=== PATIENT | female | born 1985 | race African-American/Black ===

== ENCOUNTER 2017-07-14 11:39 | Emergency (ER) | payer OTHER ==
[~2017-07-14] VITALS: Ht 162.6 cm; Wt 67.1 kg
[2017-07-14 11:50] VITALS: BP 128/60
--- NOTE | 2017-07-14 12:16 | PHYS DOC ---
Past Medical History Past Medical History: No Pertinent History Past Surgical History: , Other Additional Past Surgical Histo: elective AB Additional Information: quit when pt found out she was Alcohol Use: None Drug Use: None Adult General Chief Complaint Chief Complaint: ABDOMINAL PAIN IN HPI HPI Patient is a 31 year old female A1 who presents with complaints of bilateral side discomfort pressure. Patient had a little bit of spotting yesterday describes it as an not bright red but rather brownish/pinkish. Patient just had a normal period about a month ago. Patient denies any unusual vaginal discharge, dysuria, back pain, abdominal pain, changes in the skin, trauma. No vomiting, no diarrhea. Patient has appointment with [employer] on the . Patient states she's not overly worried she is wanted to get checked out. Review of Systems Review of Systems Constitutional: Denies fever or chills [] HENT: Denies headache Respiratory: Denies cough or shortness of breath [] Cardiovascular: No chest pain GI: Discomfort and bilateral thighs. No abdominal pain, no pelvic pain : Denies dysuria or hematuria. No vaginal discharge, no pelvic pain Musculoskeletal: Denies back pain or joint pain [] Integument: Denies rash or skin lesions [] Neurologic: Denies headache, focal weakness or sensory changes [] Endocrine: Denies polyuria or polydipsia [] Allergies Allergies Allergies Coded Allergies Type Severity Reaction Last Updated Verified Penicillins Allergy Intermediate 07/14/17 Yes Physical Exam Physical Exam Constitutional: Well developed, well nourished, no acute distress, non-toxic appearance. [] HENT: Normocephalic, atraumatic, bilateral external ears normal, oropharynx moist, no oral exudates, nose normal. [] Eyes: EOMI, conjunctiva normal, no discharge. [] Neck: Normal range of motion, trachea midline. [] Cardiovascular:Heart rate regular rhythm, no murmur, normal perfusion Lungs & Thorax: Bilateral breath sounds clear to auscultation, no tachypnea Abdomen: Bowel sounds normal, soft, no tenderness, no masses, no pulsatile masses. No guarding, no rebound Skin: Warm, dry, no erythema, no rash. [] Back: No tenderness, no CVA tenderness. [] Extremities: No tenderness, no cyanosis, no clubbing, ROM intact, no edema. [] Neurologic: Alert and oriented X 3, normal motor function, no focal deficits noted. [] Psychologic: Affect normal, judgement normal, mood normal. [] Current Patient Data Vital Signs Vital Signs Date Time Temp Pulse Resp B/P (MAP) Pulse Ox O2 Delivery O2 Flow Rate FiO2 07/14/17 11:50 98.2 99 16 128/60 (82) 100 Room Air 98.2 Lab Values Laboratory Tests Test 07/14/17 10:59 07/14/17 11:48 POC Urine HCG, Qualitative Hcg positive (Negative) Urine Collection Type Unknown Urine Color Yellow Urine Clarity Cloudy Urine pH 8.0 Urine Specific [place] 1.020 Urine Protein Negative mg/dL (NEG-TRACE) Urine Glucose (UA) Negative mg/dL (NEG) Urine Ketones (Stick) Negative mg/dL (NEG) Urine Blood Negative (NEG) Urine Nitrite Negative (NEG) Urine Bilirubin Negative (NEG) Urine Urobilinogen Dipstick 1.0 mg/dL (0.2 mg/dL) Urine Leukocyte Esterase Negative (NEG) Urine RBC 0 /HPF (0-2) Urine WBC 0 /HPF (0-4) Urine Squamous Epithelial Cells Mod /LPF Urine Amorphous Sediment Present /HPF Urine Bacteria 0 /HPF (0-FEW) Urine Mucus Slight /LPF EKG EKG [] Radiology/Procedures Radiology/Procedures [] Impressions: This is a well-looking, not ill-appearing female who presents with concerns for bilateral bilateral thigh discomfort. Patient was at work she does a lot of bending over and lifting he started expressing this discomfort, since she was closed the emergency room she's had commode and get checked out. Patient has been her usual state of health. Patient did not experience any ain in the abdomen or in the pelvis she also denies any back pain. Patient does not describe any urinary symptoms or vaginal discharge and at the time of the ED evaluation declines a pelvic exam. I expect the patient will be unable to make a full diagnosis and evaluation without it but the patient states that she feels fine and that have discomfort was mostly discomfort of the thighs. The patient's physical exam is unremarkable inaudibly she doesn't have any back pain or abdominal pain on palpation nor does she have any pelvic pain on palpation. Given the patient's appearance, her history and vital signs and physical exam a suspicion for an ectopic /significant abdominal process or infectious process is extremely low. Patient is aware of concerning signs and symptoms and is agreeable to return to the ED if her symptoms worsen or new concerning symptoms (which have been discussed with her) develop Course & Med Decision Making Course & Med Decision Making Pertinent Labs and Imaging studies reviewed. (See chart for details) have been discussed with the patient [id number] . Patient has remained in no distress during the whole ED stay. Vital signs still unremarkable. [] Dragon Disclaimer Dragon Disclaimer This electronic medical record was generated, in whole or in part, using a voice recognition dictation system. Departure Departure Impression: Primary Impression: Encounter for medical screening examination Additional Impressions: Muscular aches Disposition: HOME, SELF-CARE Condition: STABLE Referrals: NO PCP (PCP) you told us you have a pcp to follow up with, please f/u at your already scheduled appointment. Please return to the ED immediately if you experience abdominal, pelvic or back pain or start having vaginal bleeding or discharge. Patient Instructions: ABCs of , Muscle Cramps, [id number], Muscle Strain Problem Qualifiers Michael BRAUN MD Jul 14, 2017 12:16
[2017-07-14 12:32] LABS: BILIRUBIN,URINE NEGATIVE (NEG); GLUCOSE,URINE NEGATIVE (NEG); NITRITE,URINE NEGATIVE (NEG); PROTEIN,URINE NEGATIVE (NEG-TRACE)
[2017-07-14 12:40] LABS: BACTERIA,URINE 0 /HPF (0-FEW); RBC,URINE 0 /HPF (0-2); SQUAMOUS EPITHELIAL CELL,UR MOD /LPF; WBC,URINE 0 /HPF (0-4)
== END 2017-07-14 13:01 | disposition home or self-care (01) ==
LOC: ER 11:39
DX: Z34.90 Encounter for supervision of normal pregnancy, unspecified, unspecified trimester (principal); M79.652 Pain in left thigh; M79.651 Pain in right thigh; Z88.0 Allergy status to penicillin
CPT/HCPCS: 81001; 81025; 99283

== ENCOUNTER 2017-07-21 12:20 | Emergency (ER) | payer OTHER ==
[~2017-07-21] VITALS: Ht 162.6 cm; Wt 67.1 kg
[2017-07-21 12:44] VITALS: BP 114/63
[2017-07-21 12:50] LABS: BILIRUBIN,URINE NEGATIVE (NEG); GLUCOSE,URINE NEGATIVE (NEG); NITRITE,URINE NEGATIVE (NEG); PROTEIN,URINE NEGATIVE (NEG-TRACE)
[2017-07-21 13:12] LABS: BACTERIA,URINE 0 /HPF (0-FEW); RBC,URINE OCC /HPF (0-2); SQUAMOUS EPITHELIAL CELL,UR MOD /LPF; WBC,URINE 0 /HPF (0-4)
[2017-07-21 13:25] LABS: BASO % 0 % (0-3); EOS % 1 % (0-3); HEMATOCRIT 35.5 % (36.0-47.0); HEMOGLOBIN 11.8 g/dL (12.0-15.5); LYMPH # 1.4 x10^3/uL (1.0-4.8); LYMPH % 21 % (24-48); MEAN CORPUSCULAR HEMOGLOBIN 32 pg (25-35); MEAN CORPUSCULAR HGB CONC 33 g/dL (31-37); MEAN CORPUSCULAR VOLUME 97 fL (79-100); MONO % 9 % (0-9); NEUT % 69 % (31-73); PLATELET COUNT 235 x10^3/uL (140-400); RED BLOOD COUNT 3.65 x10^6/uL (3.50-5.40); RED CELL DISTRIBUTION WIDTH 14.3 % (11.5-14.5); WHITE BLOOD COUNT 6.8 x10^3/uL (4.0-11.0)
[2017-07-21 13:34] LABS: CALCIUM 9.4 mg/dL (8.5-10.1); CREATININE 0.6 mg/dL (0.6-1.0); GFR 140.2; POTASSIUM 3.6 mmol/L (3.5-5.1)
[2017-07-21 13:40] LABS: ALBUMIN 4.1 g/dL (3.4-5.0); DIRECT BILIRUBIN 0.1 mg/dL (0.0-0.2); TOTAL BILIRUBIN 0.3 mg/dL (0.2-1.0); TOTAL PROTEIN 8.3 g/dL (6.4-8.2)
--- NOTE | 2017-07-21 14:24 | RAD ---
Obstetrical ultrasound, 07/21/2017: History: Abdominal pain Transabdominal and transvaginal scans were obtained. The uterus contains a single gestational sac. The gestational sac contains a single pole demonstrating a crown-rump length of 9 mm. This suggests a gestational age of 7 weeks and yields a sonographic EDC of 03/09/2018. cardiac activity is present with a heart rate of 119 cm/s. There is a small elongated hypoechoic area along the margin of the gestational sac compatible with a subchorionic hemorrhage. It measures approximately 6 x 20 mm. The ovaries are of normal size. No adnexal mass is seen. No free fluid is evident in the pelvis. IMPRESSION: 1. Single viable intrauterine gestation of approximate 7 weeks gestational age.. 2. Small subchorionic hemorrhage.
--- NOTE | 2017-07-21 14:33 | PHYS DOC ---
Past Medical History Past Medical History: No Pertinent History Past Surgical History: , Other Additional Past Surgical Histo: elective AB Alcohol Use: None Drug Use: None Adult General Chief Complaint Chief Complaint: VAGINAL BLEEDING HPI HPI 32-year-old female presenting to the emergency department today with vaginal bleeding in the first trimester. She denies any abdominal pain. She has appointment with her OB doctor on Tuesday. Onset a few days. Location tract. Duration intermittent. No alleviating or exacerbating factors present. Review of systems is negative for abdominal pain nausea vomiting fevers chills chest pain shortness of breath. All other review of systems is negative unless otherwise noted in history of present illness. ED course: 32-year-old female presenting with vaginal bleeding and . Ultrasound obtained shows intrauterine with subchorionic hemorrhage. Otherwise vitals unremarkable. Patient is Rh+. Urinalysis is negative. The patient was then discharged home in stable condition to follow up with their whiskey proof reader in 3 days.. They were to return if their symptoms worsened or if they were concerned for any reason. [id number] discharge instructions and return precautions were given. Patient's questions were answered to their satisfaction. Patient is comfortable plan. Review of Systems Review of Systems SEE ABOVE. Allergies Allergies Allergies Coded Allergies Type Severity Reaction Last Updated Verified Penicillins Allergy Intermediate 07/14/17 Yes Physical Exam Physical Exam Constitutional: Well developed, well nourished, no acute distress, non-toxic appearance. [] HENT: Normocephalic, atraumatic, bilateral external ears normal, oropharynx moist, no oral exudates, nose normal. [] Eyes: PERRLA, EOMI, conjunctiva normal, no discharge. [] Neck: Normal range of motion, no tenderness, supple, no stridor. [] Cardiovascular:Heart rate regular rhythm, no murmur [] Lungs & Thorax: Bilateral breath sounds clear to auscultation [] Abdomen: Bowel sounds normal, soft, no tenderness, no masses, no pulsatile masses. [] Abdomen is gravid. Nontender. Skin: Warm, dry, no erythema, no rash. [] Back: No tenderness, no CVA tenderness. [] Extremities: No tenderness, no cyanosis, no clubbing, ROM intact, no edema. [] Neurologic: Alert and oriented X 3, normal motor function, normal sensory function, no focal deficits noted. [] Psychologic: Affect normal, judgement normal, mood normal. [] Current Patient Data Vital Signs Vital Signs Date Time Temp Pulse Resp B/P (MAP) Pulse Ox O2 Delivery O2 Flow Rate FiO2 07/21/17 12:44 97.4 100 18 114/63 (80) 98 Room Air 97.4 Lab Values Laboratory Tests Test 07/21/17 11:46 07/21/17 12:30 07/21/17 13:15 POC Urine HCG, Qualitative Hcg positive (Negative) Urine Collection Type Unknown Urine Color Yellow Urine Clarity Clear Urine pH 6.0 Urine Specific [place] 1.025 Urine Protein Negative mg/dL (NEG-TRACE) Urine Glucose (UA) Negative mg/dL (NEG) Urine Ketones (Stick) Trace mg/dL (NEG) Urine Blood Negative (NEG) Urine Nitrite Negative (NEG) Urine Bilirubin Negative (NEG) Urine Urobilinogen Dipstick 1.0 mg/dL (0.2 mg/dL) Urine Leukocyte Esterase Negative (NEG) Urine RBC Occ /HPF (0-2) Urine WBC 0 /HPF (0-4) Urine Squamous Epithelial Cells Mod /LPF Urine Bacteria 0 /HPF (0-FEW) Urine Mucus Marked /LPF White Blood Count 6.8 x10^3/uL (4.0-11.0) Red Blood Count 3.65 x10^6/uL (3.50-5.40) Hemoglobin 11.8 g/dL (12.0-15.5) L Hematocrit 35.5 % (36.0-47.0) L Mean Corpuscular Volume 97 fL (79-100) Mean Corpuscular Hemoglobin 32 pg (25-35) Mean Corpuscular Hemoglobin Concent 33 g/dL (31-37) Red Cell Distribution Width 14.3 % (11.5-14.5) Platelet Count 235 x10^3/uL (140-400) Neutrophils (%) (Auto) 69 % (31-73) Lymphocytes (%) (Auto) 21 % (24-48) L Monocytes (%) (Auto) 9 % (0-9) Eosinophils (%) (Auto) 1 % (0-3) Basophils (%) (Auto) 0 % (0-3) Neutrophils # (Auto) 4.7 x10^3uL (1.8-7.7) Lymphocytes # (Auto) 1.4 x10^3/uL (1.0-4.8) Monocytes # (Auto) 0.6 x10^3/uL (0.0-1.1) Eosinophils # (Auto) 0.0 x10^3/uL (0.0-0.7) Basophils # (Auto) 0.0 x10^3/uL (0.0-0.2) Maternal Serum HCG Beta Subunit 48677 mIU/mL (0-5) H Sodium Level 138 mmol/L (136-145) Potassium Level 3.6 mmol/L (3.5-5.1) Chloride Level 101 mmol/L (98-107) Carbon Dioxide Level 29 mmol/L (21-32) Anion Gap 8 (6-14) Blood Urea Nitrogen 7 mg/dL (7-20) Creatinine 0.6 mg/dL (0.6-1.0) Estimated GFR (Cockcroft-Gault) 140.2 Glucose Level 95 mg/dL (70-99) Calcium Level 9.4 mg/dL (8.5-10.1) Total Bilirubin 0.3 mg/dL (0.2-1.0) Direct Bilirubin 0.1 mg/dL (0.0-0.2) Aspartate Amino Transferase (AST) 19 U/L (15-37) Alanine Aminotransferase (ALT) 20 U/L (14-59) Alkaline Phosphatase 70 U/L (46-116) Total Protein 8.3 g/dL (6.4-8.2) H Albumin 4.1 g/dL (3.4-5.0) Lipase 75 U/L (73-393) Laboratory Tests 07/21/17 13:15 Laboratory Tests 07/21/17 13:15 EKG EKG [] Radiology/Procedures Radiology/Procedures [] Course & Med Decision Making Course & Med Decision Making Pertinent Labs and Imaging studies reviewed. (See chart for details) [] Dragon Disclaimer Dragon Disclaimer This electronic medical record was generated, in whole or in part, using a voice recognition dictation system. Departure Departure Impression: Primary Impression: Disposition: HOME, SELF-CARE Condition: STABLE Referrals: NO PCP (PCP) ANNA PEREZ Jr, MD Patient Instructions: ABCs of Additional Instructions: Thank you for allowing us to participate in your care today. Followup with your OB in 3 days. Call your Primary Doctor tomorrow and inform them of your visit today. If you do not have a primary care provider you can ask for a list of our primary care providers. Return to the emergency department you have any new or concerning findings. This should be evaluated by the primary care physician and any necessary consulting services for continued management within a few days after discharge. Return to emergency room if you have any new or concerning symptoms including but not limited to fever, chills, nausea, vomiting, intractable pain, any new rashes, chest pain, shortness of air, uncontrolled bleeding, difficulty breathing, and/or vision loss. PAOLA GALLAGHER MD Jul 21, 2017 14:33
== END 2017-07-21 14:39 | disposition home or self-care (01) ==
LOC: ER 12:20
DX: O46.91 Antepartum hemorrhage, unspecified, first trimester (principal); Z3A.01 Less than 8 weeks gestation of pregnancy; Z88.0 Allergy status to penicillin
CPT/HCPCS: 36415; 76805; 76817; 80048; 80076; 81001; 81025; 83690; 84702; 85025; 86901; 99285-25

== ENCOUNTER 2018-06-03 13:21 | Emergency (ER) | payer OTHER | END 2018-06-03 14:46 | disposition home or self-care (01) | LOC: ER 14:46 | DX: M25.532 Pain in left wrist (principal); Z88.0 Allergy status to penicillin | CPT/HCPCS: 29125; 99283-25 ==

== ENCOUNTER 2018-06-16 08:10 | Emergency (ER) | payer OTHER | END 2018-06-16 09:40 | disposition home or self-care (01) | LOC: ER 09:40 | DX: M25.532 Pain in left wrist (principal); G89.29 Other chronic pain; Z88.0 Allergy status to penicillin | CPT/HCPCS: 29125; 99283-25 ==

== ENCOUNTER 2018-08-04 07:33 | Day surgery (SDC) | payer MEDICAID ==
[~2018-08-04] VITALS: Ht 162.6 cm; Wt 81.6 kg
[~2018-08-04 07:33] MED LIST: BUPIVAC MPF-EPI 0.5%-1:200000 30 ML VIAL. ONE; BUPIVACAINE 0.25% 50 ML VIAL. ONE; BUPIVACAINE-EPI 0.5%-1:200000 50 ML VIAL. ONE; CLINDAMYCIN 900MG PREMIX 50 ML IV PRN; HYDROmorphone 2 MG/ML VIAL IV PRN; IV RINGERS,LACTATED 1000ML 1,000 ML IV SCH; LIDOCAINE 1% PF 2 ML VIAL. ID PRN; MORPHINE SULFATE 2 MG/ML VIAL. IV PRN; ONDANSETRON PF 4 MG/2 ML VIAL. IV PRN; PNV1TABL34 PO; PREN1TAB99 PO; PROCHLORPERAZINE 10 MG/2 ML VIAL. IV PRN; fentaNYL PF VIAL 100 MCG/2 ML VIAL IV PRN
[2018-08-04 07:52] LABS: U PREG PATIENT NEGATIVE (NEG)
[2018-08-04] MEDS ORDERED: PROPOFOL 20 ML IV ONE (08:06)
[2018-08-04] MEDS ORDERED: fentaNYL PF VIAL 100 MCG/2 ML VIAL ONE (08:06)
[2018-08-04] MEDS ORDERED: ONDANSETRON PF 4 MG/2 ML VIAL. ONE (08:06)
[2018-08-04] MEDS ORDERED: DEXAMETHASONE SOD PHOS 20 MG/5 ML VIAL. ONE (08:06)
[2018-08-04] MEDS ORDERED: MIDAZOLAM HCL/PF 2 MG/2 ML VIAL. ONE (08:54)
--- NOTE | 2018-08-04 09:07 | DISCH ---
DISCHARGE INSTRUCTIONS Condition on Discharge Condition on Discharge: Stable Activity After Discharge Activity Instructions for Disc: Other, see below (avoid hard grasp with left hand) Other activity instructions: May resume wrist brace for support after dressings removed Diet after Discharge Diet after Discharge: Regular Wound Incision Care Wound/Incision Care: Ice to area for comfort, Change dressing (May remove dressing in 3 days may then shower no soaking until follow-up visit) Contacting the after DC Call your doctor for: Concerns you may have Follow-Up Follow up with: Willie 10 days OLGA PADILLA MD Aug 04, 2018 09:07
[2018-08-04] MEDS ORDERED: HYDR-965 PO (09:08)
--- NOTE | 2018-08-04 10:27 | PDOC4 ---
Operative Note Operative Note Date of surgery: 08/04/2018 Preoperative diagnosis: Left wrist Dequervains tenosynovitis Postoperative diagnosis: Same Operative procedure: Left wrist first dorsal compartment release Surgeon: Willie Anesthesia: Gen. Estimated blood loss: 2 mL Complications: None Operative indications: Trisha has had severe left wrist pain unresponsive to bracing and nonoperative management. She says it's so severe that she actually dropped her baby due to the sharp pain that she had gotten and she is getting minimal relief even from a thumb spica brace that is been on for a few weeks. We talked about the possibility of injection in the tendon sheath area she preferred more definitive treatment. I talked to her about the possibility of infection nerve or blood vessel damage continued pain and subluxation the tendon medical or other anesthetic complications among others all her questions were answered she wishes to proceed with surgical evaluation and treatment. Operative text: Patient was identified procedure verified patient placed in the supine position on the operating table. After adequate amounts of general anesthesia were administered and upper arm tourniquet was placed in the left upper extremity prepped and draped in standard sterile fashion. After timeout was performed patient procedure identified and verified the arm was exsanguinated by Esmarch bandage tourniquet inflated to 250 mmHg and a longitudinal incision was made over the first dorsal compartment neurovascular structures were retracted and protected and the first dorsal compartment was released completely no subluxation of the tendons was noted thorough irrigation carried out normal saline solution closure accomplished with buried Vicryl suture subcuticular Monocryl Steri-Strips and Mastisol. Sterile dressings were applied patient was returned recovery room having tolerated procedure well OLGA PADILLA MD Aug 04, 2018 10:27
[2018-08-04] MEDS ORDERED: HYDROcodone/APAP 7.5/325MG 1 TAB TABLET PO ONE (10:30)
[2018-08-04 11:34] VITALS: BP 172/73
== END 2018-08-04 11:59 | disposition home or self-care (01) ==
LOC: SURG 07:33
PROVIDERS: ATTEND Orthopaedic Surgery
DX: M65.4 Radial styloid tenosynovitis [de Quervain] (principal); Z88.0 Allergy status to penicillin; Z98.890 Other specified postprocedural states; F17.200 Nicotine dependence, unspecified, uncomplicated; Z79.899 Other long term (current) drug therapy
CPT/HCPCS: 25000; 81025; J1100; J2250; J2405; J2704; J3010; J3490

== ENCOUNTER 2019-06-16 13:16 | Emergency (ER) | payer MEDICAID, OTHER ==
[~2019-06-16] VITALS: Ht 162.6 cm; Wt 77.1 kg
[~2019-06-16 13:16] MED LIST changes: -BUPIVAC MPF-EPI 0.5%-1:200000 30 ML VIAL. ONE; -BUPIVACAINE 0.25% 50 ML VIAL. ONE; -BUPIVACAINE-EPI 0.5%-1:200000 50 ML VIAL. ONE; -CLINDAMYCIN 900MG PREMIX 50 ML IV PRN; +HYDR-3165 PO; -HYDROmorphone 2 MG/ML VIAL IV PRN; -IV RINGERS,LACTATED 1000ML 1,000 ML IV SCH; -LIDOCAINE 1% PF 2 ML VIAL. ID PRN; -MORPHINE SULFATE 2 MG/ML VIAL. IV PRN; -ONDANSETRON PF 4 MG/2 ML VIAL. IV PRN; -PROCHLORPERAZINE 10 MG/2 ML VIAL. IV PRN; -fentaNYL PF VIAL 100 MCG/2 ML VIAL IV PRN
[2019-06-16 13:20] VITALS: BP 111/64
[2019-06-16] MEDS ORDERED: ERYTHROMYCIN 0.5% OPHTH OINTMENT 1GM TUBE. OD ONE (14:00)
[2019-06-16] MEDS ORDERED: TETRACAINE 0.5% OPHTH SOLUTION 4ML BOTTLE. OD ONE (14:00)
[2019-06-16] MEDS ORDERED: FLUORESCEIN OPHTH TEST STRIP. OD ONE (14:00)
[2019-06-16] MEDS ORDERED: ERYT1OIN6 OP (14:30)
--- NOTE | 2019-06-16 14:30 | PHYS DOC ---
Past Medical History Past Medical History: Anemia Past Surgical History: , Tubal ligation Additional Past Surgical Histo: bowel obstruction Alcohol Use: Occasionally Drug Use: None Adult General Chief Complaint Chief Complaint: EYE PROBLEMS HPI HPI 33-year-old female presents to ER via POV for complaints of right eye irritation, redness, and drainage. Patient denies injury. Patient denies any vision changes, dizziness, or headache. Patient states she had pulled an eyelash out a few days ago and following that had onset of symptoms. Patient denies wear ing glasses or contact lenses. She is not up-to-date on tetanus in the past 5 years. Review of Systems Review of Systems Constitutional: Denies fever or chills [] Eyes: Denies change in visual acuity. Reports rt eye redness/irritation/pain and swelling to eye lid. Reports has had some drainage HENT: Denies nasal congestion or sore throat [] Respiratory: Denies cough or shortness of breath [] Cardiovascular: No additional information not addressed in HPI [] GI: Denies abdominal pain, nausea, vomiting : Denies urinary sxs Musculoskeletal: Denies back/neck pain or joint pain [] Integument: Denies rash or skin lesions [] Neurologic: Denies headache, focal weakness or sensory changes. Denies dizziness All other systems were reviewed and found to be within normal limits, except as documented in this note. Current Medications Current Medications Current Medications Medications (Trade) Dose Ordered Sig/Brigida Start Time Stop Time Status Last Admin Dose Admin Diphtheria/ Tetanus/Acell Pertussis (Boostrix) 0.5 ml ONCE ONCE 06/16/19 14:45 06/16/19 14:45 DC 06/16/19 14:38 0.5 ML Erythromycin (Romycin) 0.25 inch 1X ONCE 06/16/19 14:00 06/16/19 14:01 DC 06/16/19 14:13 0.25 INCH Fluorescein Sodium (Ful-Mary) 1 strip 1X ONCE 06/16/19 14:00 06/16/19 14:01 DC 06/16/19 14:13 1 STRIP Tetracaine HCl (Tetracaine) 1 drop 1X ONCE 06/16/19 14:00 06/16/19 14:01 DC 06/16/19 13:59 1 DROP Allergies Allergies Allergies Coded Allergies Type Severity Reaction Last Updated Verified Penicillins Allergy Intermediate LUNG COLLAPSED 08/04/18 Yes Physical Exam Physical Exam Constitutional: Well developed, well nourished, no acute distress, non-toxic appearance. [] HENT: Normocephalic, atraumatic, bilateral ears normal, oropharynx moist, no oral exudates, nose normal. [] Eyes: 3mm PERRLA, EOMI, no nystagmus, conjunctiva normal, no discharge. [] Neck: Normal range of motion, no tenderness, supple, no stridor. [] Cardiovascular: Heart rate regular Lungs & Thorax: Resp. equal/nonlabored Skin: Warm, dry, no erythema, no rash. [] Back: No tenderness, no CVA tenderness. [] Extremities: No tenderness, no cyanosis, no clubbing, ROM intact, no edema. [] Neurologic: Alert and oriented X 3, normal motor function, normal sensory function, no focal deficits noted. [] Psychologic: Affect normal, judgement normal, mood normal. [] Current Patient Data Vital Signs Vital Signs Date Time Temp Pulse Resp B/P (MAP) Pulse Ox O2 Delivery O2 Flow Rate FiO2 06/16/19 13:20 98.5 87 16 111/64 (80) 100 Room Air 98.5 EKG EKG [] Radiology/Procedures Radiology/Procedures Eye Exam w/ Almeida Lamp: 1415 Visual Acuity: See Nurse's notes Visual Krishnamurthy: Intact in all four quadrants bilaterally Lac ducts/glands: Swelling to medial inner ducts- clear drainage Lids w/ evertion: Upper eyelid swelling with mild erythema, no foreign body. Pt able to open/close rt eye lid fully Conj/[place]: Clear, fluorescein uptake 6 o'clock position of cornea into 7 o'clock position in correlation with sclera Flushed eye after exam and erythromycin ointment applied by this provider. Pt tolerated exam well. Course & Med Decision Making Course & Med Decision Making Pt was evaluated in the ER for complaints of right eye irritation and drainage. Patient was found to have corneal and scleral abrasion on almeida lamp exam. Patient had right eye irrigated following exam and erythromycin ointment applied. Patient denied any vision changes, dizziness, or headache. Discussed eye exam with patient and plans for home charge with prescription for erythromycin ointment. Patient advised if symptoms persist or worsen or with any concerns she should follow-up with her primary care physician and or o phthalmology for reevaluation and further care. Patient reports improved symptoms following eye exam. She is in no visible distress at time of discharge discussion.Education provided on signs and symptoms to return to ER. Discharge instructions were discussed. Pt was updated on her tetanus while in the ER. Lexuson Disclaimer Lexuson Disclaimer This electronic medical record was generated, in whole or in part, using a voice recognition dictation system. Departure Departure Impression: Primary Impression: Cornea abrasion Disposition: HOME, SELF-CARE Condition: STABLE Referrals: KERRI ZULUAGA MD (PCP) Patient Instructions: Eye - Corneal Abrasion Additional Instructions: Avoid vigorous rubbing of your right eye to avoid further irritation and swelling. Cool compress to right eye every 3-4 hours for 20-30 minutes at a time avoid using same compress on your left eye. Tylenol and/or ibuprofen as needed for pain as directed on container. If symptoms persist follow-up with your primary care physician and/or an court administrator for reevaluation and further care. Scripts Erythromycin Base (Erythromycin) 1 Gm Oint...g. 1 GM OP TID for 7 Days, #1 MISC 0 Refills 1/2" ribbon to right eye inner lower eyelid Prov: VIET MCCOY APRN 06/16/19 VIET MCCOY APRN Jun 16, 2019 14:30
[2019-06-16] MEDS ORDERED: DIPHTH,PERTUSS(ACELL),TET TOX 0.5 ML DISP.SYRIN. VAX IM ONE (14:45)
== END 2019-06-16 14:42 | disposition home or self-care (01) ==
LOC: ER 13:16
DX: S05.01XA Injury of conjunctiva and corneal abrasion without foreign body, right eye, initial encounter (principal); X58.XXXA Exposure to other specified factors, initial encounter; Y93.89 Activity, other specified; Y92.89 Other specified places as the place of occurrence of the external cause; Y99.8 Other external cause status
CPT/HCPCS: 90471; 90715; 99283; 99284

== ENCOUNTER 2019-06-20 18:14 | Emergency (ER) | payer OTHER ==
[~2019-06-20] VITALS: Ht 162.6 cm; Wt 77.1 kg
[~2019-06-20 18:14] MED LIST changes: +ERYT1OIN6 OP
[2019-06-20 18:23] VITALS: BP 117/63
[2019-06-20] MEDS ORDERED: FLUORESCEIN OPHTH TEST STRIP. OD ONE (18:30)
[2019-06-20] MEDS ORDERED: NEO/5DRO OD (18:52)
--- NOTE | 2019-06-20 18:52 | PHYS DOC ---
Past Medical History Past Medical History: Anemia Past Surgical History: Additional Past Surgical Histo: bowel obstruction Alcohol Use: Rarely Drug Use: None Adult General Chief Complaint Chief Complaint: EYE PROBLEMS HPI HPI Patient is a 33 year old female who presents with complaining of right eye redness. Patient complaining of right eyelid redness for several days and was seen in this emergency room 2 days ago and treated with oral patient with erythromycin ointment without improvement of her condition. Patient complaining of yellow discharge and edema and erythema eyelid and conjunctiva without pain, nausea and vomiting, fever and chills, change of vision. Review of Systems Review of Systems Constitutional: Denies fever or chills [] Eyes: Denies change in visual acuity, reports redness HENT: Denies nasal congestion or sore throat [] Respiratory: Denies cough or shortness of breath [] Cardiovascular: No additional information not addressed in HPI [] GI: Denies abdominal pain, nausea, vomiting, bloody stools or diarrhea [] : Denies dysuria or hematuria [] Musculoskeletal: Denies back pain or joint pain [] Integument: Denies rash or skin lesions [] Neurologic: Denies headache, focal weakness or sensory changes [] Endocrine: Denies polyuria or polydipsia [] All other systems were reviewed and found to be within normal limits, except as documented in this note. Current Medications Current Medications Current Medications Medications (Trade) Dose Ordered Sig/Brigida Start Time Stop Time Status Last Admin Dose Admin Fluorescein Sodium (Ful-Mary) 1 strip 1X ONCE 06/20/19 18:30 06/20/19 18:31 DC Tetracaine HCl (Tetracaine) 1 drop 1X ONCE 06/20/19 19:00 06/20/19 19:01 DC 06/20/19 18:38 1 DROP Allergies Allergies Allergies Coded Allergies Type Severity Reaction Last Updated Verified Penicillins Allergy Intermediate LUNG COLLAPSED 08/04/18 Yes Physical Exam Physical Exam Constitutional: Well developed, well nourished, mild distress, non-toxic appearance. [] HENT: Normocephalic, atraumatic. Eyes: PERRLA, EOMI, right upper and lower eyelid edema, right conjunctival eryth fernanda, right eye pressures 6 and left eye pressure 5, no tenderness of eye, negative fluorescein uptake Neck: Normal range of motion, no tenderness, supple, no stridor. [] Cardiovascular:Heart rate regular rhythm, no murmur [] Lungs & Thorax: Bilateral breath sounds clear to auscultation [] Neurologic: Alert and oriented X 3, normal motor function, normal sensory function, no focal deficits noted. [] Psychologic: Affect normal, judgement normal, mood normal. [] Current Patient Data Vital Signs Vital Signs Date Time Temp Pulse Resp B/P (MAP) Pulse Ox O2 Delivery O2 Flow Rate FiO2 06/20/19 18:23 98.3 98 18 117/63 (81) 99 Room Air 98.3 EKG EKG [] Radiology/Procedures Radiology/Procedures [] Course & Med Decision Making Course & Med Decision Making Additional patient in ER showed the patient presented for the second time to ER with right eye erythema and edema and discharge. Patient had negative fluorescein test. Bilateral eye pressure was normal. Patient was advised to follow-up with the back gray cloth washer tomorrow and prescription for Maxitrol was given. Dragon Disclaimer Dragon Disclaimer This electronic medical record was generated, in whole or in part, using a voice recognition dictation system. Departure Departure Impression: Primary Impression: Acute conjunctivitis of right eye Disposition: HOME, SELF-CARE (at 1850) Condition: STABLE Referrals: KERRI ZULAUGA MD (PCP) Patient Instructions: Bacterial Conjunctivitis Additional Instructions: Follow-up with back gray cloth washer tomorrow Follow-up with your primary care physician in 3-5 days Return to ER if not getting better Scripts Reji/Polymyx B Sulf/Dexameth (MAXITROL EYE DROPS) 5 Ml Drops.susp 2 DROP OD QID for 7 Days, #5 ML Prov: FRANSISCO KELSEY MD 06/20/19 Problem Qualifiers Primary Impression: Acute conjunctivitis of right eye Acute conjunctivitis type: bacterial Qualified Codes: H10.31 - Unspecified acute conjunctivitis, right eye FRANSISCO KELSEY MD Jun 20, 2019 18:52
[2019-06-20] MEDS ORDERED: TETRACAINE 0.5% OPHTH SOLUTION 4ML BOTTLE. OD ONE (19:00)
== END 2019-06-20 19:18 | disposition home or self-care (01) ==
LOC: ER 18:14
DX: H10.31 Unspecified acute conjunctivitis, right eye (principal); R11.2 Nausea with vomiting, unspecified; R50.9 Fever, unspecified; Z88.0 Allergy status to penicillin
CPT/HCPCS: 99283

== ENCOUNTER → 2022-01-27 | Outpatient (CLI) | payer OTHER ==
[~2022-01-27] MED LIST changes: +NEO/5DRO OD
[2022-01-27 16:57] LABS: BASO # 0.1 x10^3/uL (0.0-0.2); BASO % 1 % (0-3); EOS % 0 % (0-3); HEMATOCRIT 36.1 % (36.0-47.0); HEMOGLOBIN 11.8 g/dL (12.0-15.5); LYMPH % 15 % (24-48); MEAN CORPUSCULAR HEMOGLOBIN 30 pg (25-35); MEAN CORPUSCULAR HGB CONC 33 g/dL (31-37); MEAN CORPUSCULAR VOLUME 93 fL (79-100); MONO # 0.1 x10^3/uL (0.0-1.1); MONO % 1 % (0-9); NEUT # 5.9 x10^3/uL (1.8-7.7); NEUT % 83 % (31-73); PLATELET COUNT 309 x10^3/uL (140-400); RED BLOOD COUNT 3.88 x10^6/uL (3.50-5.40); RED CELL DISTRIBUTION WIDTH 15.1 % (11.5-14.5); WHITE BLOOD COUNT 7.1 x10^3/uL (4.0-11.0)
[2022-01-27 17:27] LABS: CHOLESTEROL/HDL RATIO 1.9
[2022-01-28 05:14] LABS: HEMOGLOBIN A1C 5.3 % (4.8-5.6)
--- NOTE | 2022-01-28 08:13 | RAD ---
EXAM: Cervical spine, 3 views HISTORY: Cervical radiculopathy. COMPARISON: None. FINDINGS: 3 views of the cervical spine are obtained. There is a chronic fragmented anterior osteophy joann along the anterior inferior endplate of C5. There is no listhesis. The vertebral bodies are jasmina l in height. This spaces are preserved. IMPRESSION: Degenerative endplate osteophyte along the anterior-inferior endplate of C5. No acute oss eous finding. Electronically signed by: Joselyn Young MD (01/28/2022 8:10 AM) [id number]
== END ==
LOC: LAB 16:29
PROVIDERS: ATTEND Physician Assistant
DX: M25.78 Osteophyte, vertebrae (principal); M79.641 Pain in right hand; M79.642 Pain in left hand; M54.12 Radiculopathy, cervical region
CPT/HCPCS: 36415; 72040; 80061; 82306; 82728; 83036; 83540; 83550; 84443; 85025; 85651